=== PATIENT | male | born 1980 | race African-American/Black ===

== ENCOUNTER 2016-08-20 17:42 | Emergency (ER) | payer SELFPAY ==
[2016-08-20 18:06] VITALS: BP 160/98
--- NOTE | 2016-08-20 18:34 | PHYS DOC ---
Past Medical History Past Medical History: No Pertinent History Past Surgical History: Other Additional Past Surgical Histo: HERNIA REPAIR Alcohol Use: None Drug Use: None Adult General Chief Complaint Chief Complaint: SORE THROAT HPI HPI Patient is a 36 year old male presents emergency room with complaint of atraumatic sore throat, nonproductive cough and body aches that began 4 days ago. Patient denies any known ill contacts with strep or mononucleosis. Patient denies antibiotic use, hospitalization or foreign travel within the past 90 days. Review of Systems Review of Systems Constitutional: Denies fever or chills [] Eyes: Denies change in visual acuity, redness, or eye pain [] HENT: Denies nasal congestion or sore throat [] Respiratory: Denies cough or shortness of breath [] Cardiovascular: No additional information not addressed in HPI [] GI: Denies abdominal pain, nausea, vomiting, bloody stools or diarrhea [] : Denies dysuria or hematuria [] Musculoskeletal: Denies back pain or joint pain [] Integument: Denies rash or skin lesions [] Neurologic: Denies headache, focal weakness or sensory changes [] Endocrine: Denies polyuria or polydipsia [] Current Medications Current Medications Current Medications Medications (Trade) Dose Ordered Sig/Fei Start Time Stop Time Status Last Admin Dose Admin Dexamethasone Sodium Phosphate (Decadron) 10 mg 1X ONCE 08/20/16 19:00 08/20/16 19:01 DC 08/20/16 18:59 10 MG Penicillin G Benzathine (Bicillin L-A) 1,200,000 unit 1X ONCE 08/20/16 19:00 08/20/16 19:01 DC 08/20/16 18:59 1,200,000 UNIT Allergies Allergies Allergies Coded Allergies Type Severity Reaction Last Updated Verified No Known Drug Allergies 01/04/16 No Physical Exam Physical Exam Constitutional: Well developed, well nourished, no acute distress, non-toxic appearance. HENT: Normocephalic, atraumatic, bilateral external ears normal, oropharynx moist, no oral exudates, nose normal. There is no trismus or hot potato speech. Posterior oropharynx is hyperemic with bilateral tonsillar swelling 3/4 without exudative plaques. There is no peritonsillar swelling or uvular deviation. Eyes: PERRLA, EOMI, conjunctiva normal, no discharge. [] Neck: Normal range of motion, no tenderness, supple, no stridor. [] Cardiovascular:Heart rate regular rhythm, no murmur [] Lungs & Thorax: Bilateral breath sounds clear to auscultation Abdomen: Bowel sounds normal, soft, no tenderness, no masses, no pulsatile masses. [] Skin: Warm, dry, no erythema, no rash. [] Back: No tenderness, no CVA tenderness. [] Extremities: No tenderness, no cyanosis, no clubbing, ROM intact, no edema. [] Neurologic: Alert and oriented X 3, normal motor function, normal sensory function, no focal deficits noted. [] Psychologic: Affect normal, judgement normal, mood normal. [] Current Patient Data Vital Signs Vital Signs Date Time Temp Pulse Resp B/P Pulse Ox O2 Delivery O2 Flow Rate FiO2 08/20/16 18:06 99.3 101 22 96 Room Air 99.3 EKG EKG [] Radiology/Procedures Radiology/Procedures [] Course & Med Decision Making Course & Med Decision Making Pertinent Labs and Imaging studies reviewed. (See chart for details) [] Dragon Disclaimer Dragon Disclaimer This electronic medical record was generated, in whole or in part, using a voice recognition dictation system. Departure Departure Impression: Primary Impression: Strep throat Disposition: HOME, SELF-CARE Condition: GOOD Referrals: NO PCP (PCP) Patient Instructions: Strep Throat, [id number] Additional Instructions: 1. You tested positive for strep today. 2. You received an antibiotic here in the emergency Department called Bicillin LA as well as a steroid called Decadron. 3. Take the medication as prescribed. 4. Use the pamphlet provided for assistance in finding a primary care doctor to address your medical concerns. Be sure to call Monday to schedule follow-up appointment. Scripts Hydrocodone Bit/Acetaminophen (Hydrocodone-Apap 7.5-325/15 Soln )15 Ml [id number] Ml PO PRN Q6HRS PRN PAIN #120 ML Ref 0 Prov:POONAM ROQUE 08/20/16 POONAM ROQUE Aug 20, 2016 18:34
[2016-08-20] MEDS ORDERED: HYDR15SO4 PO (18:48)
[2016-08-20] MEDS ORDERED: PENICILLIN G BENZATHINE LA 1,200,000 UNIT/2 ML DISP.SYRIN. IM ONE (19:00)
[2016-08-20] MEDS ORDERED: DEXAMETHASONE SOD PHOS 20 MG/5 ML VIAL. PO ONE (19:00)
[2016-08-21 07:31] LABS: NEGATIVE OBC STREP NEG; POSITIVE OBC STREP POS
== END 2016-08-20 19:16 | disposition home or self-care (01) ==
LOC: ER 17:42
DX: J02.0 Streptococcal pharyngitis (principal)
CPT/HCPCS: 87880; 96372; 99283; J0561; J1100

== ENCOUNTER 2019-07-25 10:47 | Emergency (ER) | payer SELFPAY ==
[~2019-07-25] VITALS: Ht 182.9 cm; Wt 127.0 kg
[~2019-07-25 10:47] MED LIST: HYDR15SO6 PO
[2019-07-25 11:03] VITALS: BP 163/93
[2019-07-25 12:02] LABS: INFLUENZA A PATIENT NEGATIVE (NEGATIVE); INFLUENZA B PATIENT NEGATIVE (NEGATIVE)
[2019-07-25] MEDS ORDERED: ALBU2.5V8 IH (12:23)
[2019-07-25] MEDS ORDERED: PRED50TA PO (12:23)
[2019-07-25] MEDS ORDERED: BENZ100C PO (12:23)
--- NOTE | 2019-07-25 12:23 | PHYS DOC ---
Past Medical History Past Medical History: No Pertinent History Past Surgical History: Other Additional Past Surgical Histo: HERNIA REPAIR Alcohol Use: None Drug Use: None Adult General Chief Complaint Chief Complaint: COUGH HPI HPI Patient is a 39 year old male who presents to the ED today with complaints of cough, sore throat and nasal congestion for "a while". Patient is in the ED with 2 other family members with the same complaint. Denies any fever. He is a smoker. Review of Systems Review of Systems Constitutional: Denies fever or chills [] Eyes: Denies change in visual acuity, redness, or eye pain [] HENT: Reports nasal congestion and sore throat Respiratory: Denies cough or shortness of breath [] Cardiovascular: No additional information not addressed in HPI [] GI: Denies abdominal pain, nausea, vomiting, bloody stools or diarrhea [] : Denies dysuria or hematuria [] Musculoskeletal: Denies back pain or joint pain [] Integument: Denies rash or skin lesions [] Neurologic: Denies headache, focal weakness or sensory changes [] Endocrine: Denies polyuria or polydipsia [] All other systems were reviewed and found to be within normal limits, except as documented in this note. Allergies Allergies Allergies Coded Allergies Type Severity Reaction Last Updated Verified No Known Drug Allergies 01/04/16 No Physical Exam Physical Exam Constitutional: Well developed, well nourished, no acute distress, non-toxic appearance. [] HENT: Normocephalic, atraumatic, bilateral external ears normal, oropharynx moist, no oral exudates, nose normal. [] Eyes: PERRLA, EOMI, conjunctiva normal, no discharge. [] Neck: Normal range of motion, no tenderness, supple, no stridor. [] Cardiovascular:Heart rate regular rhythm, no murmur [] Lungs & Thorax: Bilateral breath sounds clear to auscultation [] Abdomen: Bowel sounds normal, soft, no tenderness, no masses, no pulsatile masses. [] Skin: Warm, dry, no erythema, no rash. [] Back: No tenderness, no CVA tenderness. [] Extremities: No tenderness, no cyanosis, no clubbing, ROM intact, no edema. [] Neurologic: Alert and oriented X 3, normal motor function, normal sensory func tion, no focal deficits noted. [] Psychologic: Affect normal, judgement normal, mood normal. [] Current Patient Data Vital Signs Vital Signs Date Time Temp Pulse Resp B/P (MAP) Pulse Ox O2 Delivery O2 Flow Rate FiO2 07/25/19 11:03 98.3 96 16 163/93 (116) 97 Room Air 98.3 Lab Values Laboratory Tests Test 07/25/19 11:18 Influenza Type A Antigen Negative (NEGATIVE) Influenza Type B Antigen Negative (NEGATIVE) EKG EKG [] Radiology/Procedures Radiology/Procedures [] Course & Med Decision Making Course & Med Decision Making Pertinent Labs and Imaging studies reviewed. (See chart for details) This is a 39-year-old male patient presented to the ED today with sore throat cough and nasal congestion, patient has no fever in the Ed with several family members with the same complain. Lungs are clear. Negative influenza A or B. Encouraged to consider smoking cessation. D/c with albuterol inhaler, prednisone and tessalone perles. Dragon Disclaimer Dragon Disclaimer This electronic medical record was generated, in whole or in part, using a voice recognition dictation system. Departure Departure Impression: Primary Impression: Acute pharyngitis Additional Impressions: Bronchitis Smoking addiction URI (upper respiratory infection) Disposition: 01 HOME, SELF-CARE Condition: STABLE Referrals: NO PCP (PCP) follow up with your doctor in 1-2 weeks Patient Instructions: Acute Bronchitis, Smoking Cessation Additional Instructions: You were evaluated in the emergency room with cough and nasal congestion. Please use the prescribed medicine as well as [id number] remedies to manage his symptoms. Maintain good hand hygiene. Follow-up with your doctor in 1-2 weeks. Scripts Benzonatate (TESSALON PERLE) 100 Mg Capsule 1 CAP PO TID, #30 CAP Prov: MUTUNGACAROL CODE ENFORCEMENT SUPERVISOR 07/25/19 Prednisone (PREDNISONE) 50 Mg Tablet 1 TAB PO DAILY, #5 TAB Prov: MUTUNGA,CAROL CODE ENFORCEMENT SUPERVISOR 07/25/19 Albuterol Sulfate (Proair Hfa) 8.5 Gm Hfa.aer.ad 2 PUFF IH PRN Q4-6HRS PRN for wheezing for 21 Days, #1 INHALER 0 Refills Prov: MUTUNGA,CAROL CODE ENFORCEMENT SUPERVISOR 07/25/19 Problem Qualifiers Primary Impression: Acute pharyngitis Pharyngitis/tonsillitis etiology: unspecified etiology Qualified Codes: J02.9 - Acute pharyngitis, unspecified Additional Impressions: URI (upper respiratory infection) URI type: unspecified URI Qualified Codes: J06.9 - Acute upper respiratory infection, unspecified CAROL SHEN CODE ENFORCEMENT SUPERVISOR Jul 25, 2019 12:23
== END 2019-07-25 12:41 | disposition home or self-care (01) ==
LOC: ER 10:47
DX: J02.9 Acute pharyngitis, unspecified (principal); J40 Bronchitis, not specified as acute or chronic; J06.9 Acute upper respiratory infection, unspecified; F17.200 Nicotine dependence, unspecified, uncomplicated; Z98.890 Other specified postprocedural states
CPT/HCPCS: 87804; 99284

== ENCOUNTER 2020-11-12 12:50 | Emergency (ER) | payer SELFPAY ==
[~2020-11-12] VITALS: Ht 182.9 cm; Wt 135.3 kg
[~2020-11-12 12:50] MED LIST changes: +ALBU2.5V8 IH; +BENZ100C PO; +PRED50TA PO
[2020-11-12] MEDS ORDERED: IV NORMAL SALINE 1000ML BAG 1,000 ML IV ONE (14:00)
--- NOTE | 2020-11-12 14:00 | ED.ADGEN ---
Past Medical History Past Medical History: No Pertinent History Past Surgical History: Other Additional Past Surgical Histo: HERNIA REPAIR Smoking Status: Former Smoker Alcohol Use: None Drug Use: None General Adult EDM: Chief Complaint: FLU SYMPTOM HPI: HPI: Patient is a 40 year old male coming in for cold and flulike symptoms. Patient states symptoms started today he has had congestion difficulty breathing through his nose, body aches, fatigue. Denies any cough. States his congestion is white and thick. Denies any fevers but has had chills and sweats. Patient st ates he feels like his difficult time breathing has been able to fill his lungs open for still his mouth. No sick contacts at home but, lives with a significant other who is . Denies any previous Covid infection, no known sick contacts, as patient states it feels like when he had the flu. Did not get his flu vaccine this season. States he had similar symptoms for a day that was about 10 days ago and has been fine since. Review of Systems: Review of Systems: All other systems within normal limits except for as noted in the HPI Current Medications: Current Medications Medications (Trade) Dose Ordered Sig/Fei Start Time Stop Time Status Last Admin Dose Admin Sodium Chloride 1,000 ml @ 1,000 mls/hr 1X ONCE 11/12/20 14:00 11/12/20 14:59 DC 11/12/20 14:25 1,000 MLS/HR Allergies: Allergies: Allergies Coded Allergies Type Severity Reaction Last Updated Verified No Known Drug Allergies 11/12/20 No Physical Exam: PE: Constitutional: Well developed, well nourished, no acute distress, non-toxic appearance. [] HENT: Normocephalic, atraumatic, bilateral external ears normal, nose normal. [] Eyes: PERRLA, conjunctiva normal, no discharge. [] Neck: No rigidity, supple, no stridor. [] Cardiovascular: Tachycardic and regular rhythm, brisk cap refill [] Lungs & Thorax: Non labored symmetric respirations, no tachypnea or respiratory distress [] Abdomen: Soft, nondistended. Skin: Warm, dry, no erythema, no rash. [] Back: Unremarkable Extremities: No deformities, range of motion grossly intact, no lower extremity edema [] Neurologic: Alert and oriented X 3, no focal deficits noted. [] Psychologic: Affect normal, judgement normal, mood normal. [] Current Patient Data: Labs: Laboratory Tests Test 11/12/20 14:00 11/12/20 14:24 11/12/20 15:40 Influenza Type A Antigen Negative (NEGATIVE) Influenza Type B Antigen Negative (NEGATIVE) White Blood Count 4.9 x10^3/uL (4.0-11.0) Red Blood Count 4.83 x10^6/uL (4.30-5.70) Hemoglobin 14.9 g/dL (13.0-17.5) Hematocrit 43.6 % (39.0-53.0) Mean Corpuscular Volume 90 fL (79-100) Mean Corpuscular Hemoglobin 31 pg (25-35) Mean Corpuscular Hemoglobin Concent 34 g/dL (31-37) Red Cell Distribution Width 13.9 % (11.5-14.5) Platelet Count 77 x10^3/uL (140-400) L Neutrophils (%) (Auto) 80 % (31-73) H Lymphocytes (%) (Auto) 13 % (24-48) L Monocytes (%) (Auto) 5 % (0-9) Eosinophils (%) (Auto) 1 % (0-3) Basophils (%) (Auto) 2 % (0-3) Neutrophils # (Auto) 3.9 x10^3/uL (1.8-7.7) Lymphocytes # (Auto) 0.6 x10^3/uL (1.0-4.8) L Monocytes # (Auto) 0.2 x10^3/uL (0.0-1.1) Eosinophils # (Auto) 0.0 x10^3/uL (0.0-0.7) Basophils # (Auto) 0.1 x10^3/uL (0.0-0.2) Platelet Estimate Decreased (ADEQUATE) Sodium Level 136 mmol/L (136-145) Potassium Level 3.9 mmol/L (3.5-5.1) Chloride Level 103 mmol/L (98-107) Carbon Dioxide Level 24 mmol/L (21-32) Anion Gap 9 (6-14) Blood Urea Nitrogen 12 mg/dL (8-26) Creatinine 1.3 mg/dL (0.7-1.3) Estimated GFR (Cockcroft-Gault) 74.4 BUN/Creatinine Ratio 9 (6-20) Glucose Level 103 mg/dL (70-99) H Calcium Level 8.4 mg/dL (8.5-10.1) L Total Bilirubin 0.6 mg/dL (0.2-1.0) Aspartate Amino Transferase (AST) 12 U/L (15-37) L Alanine Aminotransferase (ALT) 22 U/L (16-63) Alkaline Phosphatase 78 U/L (46-116) Troponin I Quantitative < 0.017 ng/mL (0.000-0.055) Total Protein 7.1 g/dL (6.4-8.2) Albumin 3.6 g/dL (3.4-5.0) Albumin/Globulin Ratio 1.0 (1.0-1.7) Urine Collection Type Void Urine Color Yellow Urine Clarity Clear Urine pH 5.5 (<5.0-8.0) Urine Specific [place] 1.020 (1.000-1.030) Urine Protein Negative mg/dL (NEG-TRACE) Urine Glucose (UA) Negative mg/dL (NEG) Urine Ketones (Stick) Trace mg/dL (NEG) Urine Blood Negative (NEG) Urine Nitrite Negative (NEG) Urine Bilirubin Negative (NEG) Urine Urobilinogen Dipstick 1.0 mg/dL (0.2 mg/dL) Urine Leukocyte Esterase Negative (NEG) Urine RBC 0 /HPF (0-2) Urine WBC 0 /HPF (0-4) Urine Squamous Epithelial Cells Few /LPF Urine Bacteria 0 /HPF (0-FEW) Urine Mucus Marked /LPF Laboratory Tests 11/12/20 14:24 Laboratory Tests 11/12/20 14:24 Vital Signs: Vital Signs Date Time Temp Pulse Resp B/P (MAP) Pulse Ox O2 Delivery O2 Flow Rate FiO2 11/12/20 13:41 98.5 101 18 171/110 (130) 96 Room Air 98.5 EKG: EKG: [] Heart Score: C/O Chest Pain: No Risk Factors: Risk Factors: DM, Current or recent (<one month) smoker, HTN, HLP, family history of CAD, obesity. Risk Scores: Score 0 - 3: 2.5% MACE over next 6 weeks - Discharge Home Score 4 - 6: 20.3% MACE over next 6 weeks - Admit for Clinical Observation Score 7 - 10: 72.7% MACE over next 6 weeks - Early Invasive Strategies Radiology/Procedures: Radiology/Procedures: Single view chest dated 11/12/2020: No comparison available. Clinical Indication: Cough. Findings: Single upright portable exam of the chest was performed. Heart size and mediastinal contours are within normal limits given technique. The lungs are clear without evidence of focal consolidation. Vascular interstitium is within normal limits. Impression:: Negative portable chest. [] Course & Med Decision Making: Course & Med Decision Making Pertinent Labs and Imaging studies reviewed. (See chart for details) [] Dragon Disclaimer: Dragon Disclaimer: This electronic medical record was generated, in whole or in part, using a voice recognition dictation system. Departure Departure Impression: Primary Impression: URI (upper respiratory infection) Disposition: 01 DC HOME SELF CARE/HOMELESS Condition: STABLE Referrals: NO PCP (PCP) Additional Instructions: You have been tested for or diagnosed with COVID-19. It is an infection caused by a new type of coronavirus. COVID-19 will cause cold-like or mild flu symptoms in most. It can cause more severe symptoms like problems breathing in some. There is no treatment for COVID-19. The body will clear the infection over time. Self-care will help to ease discomfort. Steps to Take: Self-Care Rest as needed. Healthy habits may help you feel better. Steps include: Choose healthy foods including fruits and vegetables. Drink water throughout the day. Get plenty of sleep each night. If you smoke, try to quit. It may ease breathing. Avoid alcohol. Keep Others Healthy The virus can spread to others. Droplets are released every time you sneeze or cough. The droplets can get into the mouth, nose, or eyes of people near you and lead to infection. To lower the chances of spreading COVID-19 to others: Stay at home until your doctor has said it is safe to leave. If you tested positive this will mean staying isolated until both of the following are true: At least 7 days have passed since the start of illness. You are free of fever for at least 72 hours without the use of medicine. During this time: - Avoid public areas, events, or transportation. Do not return to work or school until your doctor has said it is safe to do so. - Call ahead if you need to go to a medical center. Let them know you may have COVID-19. It will help them guide you where to go. They may also ask you to wear a facemask when you come to the office. - If you call for emergency medical services, let them know you may have COVID- 19. While at home: - Try to avoid close contact with others. Stay about 6 feet away. - If possible, spend most of your time in a separate room from others. - Use a face mask if you will be in close contact with others such as sharing a room or vehicle. - Have someone wipe down common surfaces in the home. Use household r developer every day on areas like doorknobs, counters, or sinks. - Cough or sneeze into a tissue. Throw the tissue away right after use. If a tissue is not available, cough or sneeze into your elbow. - Wash your hands often. Wash them after sneezing or coughing. Use soap and water and wash for at least 20 seconds. Alcohol based hand vacuum cleaner mechanic can be used if soap and water is not available. - Do not prepare food for others. Avoid sharing personal items like forks, spoons, or toothbrushes. - Avoid close contact with pets while you are sick. There is no evidence of the virus passing to pets. This is a safety step until more is known about this virus. Isolation can be frustrating. Social interaction can help. Keep in touch with friends and family through phone and tech options. You can still interact with others in your home, just keep a safe distance of about 6 feet. Follow-up: Your doctors office will check in with you to see if there are any changes in your health. You may be asked to keep track of symptoms to share with them. They will also let you know when you are clear to be in public again. Problems to Look Out For: Contact your doctor if your recovery is not going as you expect. Get emergency care if you have problems such as: - Trouble breathing - Nonstop chest pain or pressure - Changes in awareness, confusion, or problems waking - Lips or face have bluish color - Worsening of symptoms If you think you have an emergency, call for emergency medical services right away. As taken from [facility] Scripts Prednisone (PREDNISONE) 50 Mg Tablet 1 TAB PO DAILY for steroid for 5 Days, #5 TAB Prov: ARAMIS JAMES MD 11/12/20 Oxymetazoline Hcl (AFRIN) 30 Ml [place] 30 ML NS BID for Congestion for 3 Days, #1 BOT Prov: ARAMIS JAMES MD 11/12/20 ARAMIS JAMES MD Nov 12, 2020 14:00
--- NOTE | 2020-11-12 14:16 | RAD ---
Single view chest dated 11/12/2020: No comparison available. Clinical Indication: Cough. Findings: Single upright portable exam of the chest was performed. Heart size and mediastinal contours are with in normal limits given technique. The lungs are clear without evidence of focal consolidation. Vascul ar interstitium is within normal limits. Impression:: Negative portable chest. Electronically signed by: Armaan Ramirez MD (11/12/2020 2:14 PM) [id number]
[2020-11-12 14:33] LABS: BASO # 0.1 x10^3/uL (0.0-0.2); BASO % 2 % (0-3); EOS % 1 % (0-3); HEMATOCRIT 43.6 % (39.0-53.0); HEMOGLOBIN 14.9 g/dL (13.0-17.5); LYMPH # 0.6 x10^3/uL (1.0-4.8); LYMPH % 13 % (24-48); MEAN CORPUSCULAR HEMOGLOBIN 31 pg (25-35); MEAN CORPUSCULAR HGB CONC 34 g/dL (31-37); MEAN CORPUSCULAR VOLUME 90 fL (79-100); MONO # 0.2 x10^3/uL (0.0-1.1); MONO % 5 % (0-9); NEUT # 3.9 x10^3/uL (1.8-7.7); NEUT % 80 % (31-73); PLATELET COUNT 77 x10^3/uL (140-400); RED BLOOD COUNT 4.83 x10^6/uL (4.30-5.70); RED CELL DISTRIBUTION WIDTH 13.9 % (11.5-14.5); WHITE BLOOD COUNT 4.9 x10^3/uL (4.0-11.0)
[2020-11-12 14:34] LABS: INFLUENZA A PATIENT NEGATIVE (NEGATIVE); INFLUENZA B PATIENT NEGATIVE (NEGATIVE)
[2020-11-12 14:45] LABS: CALCIUM 8.4 mg/dL (8.5-10.1); CREATININE 1.3 mg/dL (0.7-1.3); GFR 74.4; POTASSIUM 3.9 mmol/L (3.5-5.1)
[2020-11-12 14:51] LABS: ALBUMIN 3.6 g/dL (3.4-5.0); TOTAL BILIRUBIN 0.6 mg/dL (0.2-1.0); TOTAL PROTEIN 7.1 g/dL (6.4-8.2)
[2020-11-12 14:53] LABS: PLT ESTIMATE DECREASED (ADEQUATE)
[2020-11-12 15:54] LABS: BILIRUBIN,URINE NEGATIVE (NEG); CLARITY,URINE CLEAR; COLOR,URINE YELLOW; NITRITE,URINE NEGATIVE (NEG); PH,URINE 5.5 (<5.0-8.0); PROTEIN,URINE NEGATIVE (NEG-TRACE)
[2020-11-12 16:02] LABS: BACTERIA,URINE 0 /HPF (0-FEW); RBC,URINE 0 /HPF (0-2); WBC,URINE 0 /HPF (0-4)
[2020-11-12] MEDS ORDERED: PRED50TA PO (16:11)
[2020-11-12] MEDS ORDERED: OXYM30SP25 NS (16:11)
[2020-11-12 16:23] VITALS: BP 162/78
--- NOTE | 2020-11-13 12:41 | NUR ---
IP: Attempted to contact pt concerning COVID results. No answer, left a voicemail to return the call.
== END 2020-11-12 16:45 | disposition home or self-care (01) ==
LOC: ER 12:50
DX: J06.9 Acute upper respiratory infection, unspecified (principal); Z20.822 Contact with and (suspected) exposure to COVID-19; R09.81 Nasal congestion; R53.83 Other fatigue; Z87.891 Personal history of nicotine dependence; Z98.890 Other specified postprocedural states
CPT/HCPCS: 36415; 71045; 80053; 81001; 84484; 85025; 87804; 96360; 96361; 99285; J7030; U0003

== ENCOUNTER 2021-04-04 04:46 | Inpatient (IN) | payer SELFPAY ==
[~2021-04-04] VITALS: Ht 182.9 cm; Wt 137.7 kg
[~2021-04-04 04:46] MED LIST changes: +OXYM30SP25 NS
[2021-04-04 05:19] VITALS: BP 145/86
[2021-04-04] MEDS ORDERED: ONDANSETRON PF 4 MG/2 ML VIAL. IVP PRN ×2 (05:45→13:15)
[2021-04-04] MEDS: PIPERACILLIN/TAZOBACTAM 3.375 GM in IV NORMAL SALINE 50ML 50 ML IV SCH ×3 (06:00→17:45)
[2021-04-04] MEDS: IV NORMAL SALINE 1000ML BAG 1,000 ML IV SCH ×2 (06:28→15:45)
[2021-04-04 07:00] VITALS: BP 142/90
[2021-04-04] MEDS: MORPHINE SULFATE 4 MG/ML INJ. IV PRN ×3 (09:18→22:14)
[2021-04-04] MEDS ORDERED: BUPIVACAINE-EPI 0.5%-1:200000 MPF 30 ML VIAL. ONE (10:18)
--- NOTE | 2021-04-04 11:08 | HP ---
ADMIT DATE: 04/04/2021 HISTORY OF PRESENT ILLNESS: The patient is a 41-year-old -[place] male patient who came to the Emergency Room complaining of right lower quadrant abdominal pain that started earlier in the day. He rates his pain as 8/10, sharp in nature with mild nausea, but no vomiting. He states he had anything like this before. Denies any recent trauma, travel, fever, chest pain, shortness of breath. He was investigated in the Emergency Room and has had lab work as well as imaging studies. His CT scan of the abdomen and pelvis showed that the patient has uncomplicated acute appendicitis and hepatic steatosis. He was transferred to [facility] to consult the surgical team for definitive surgical treatment. PAST MEDICAL HISTORY: Significant for hypertension; however, the patient is not taking any medication for that. PAST SURGICAL HISTORY: Significant for left inguinal hernia repair. ALLERGIES: No known drug allergies. MEDICATIONS: He is currently on no medication, although he is supposed to be on antihypertensive medication. FAMILY HISTORY: Noncontributory. SOCIAL HISTORY: He is single, smokes a pack a day, drinks alcohol occasionally. He also smokes marijuana and works in construction and remodeling. PHYSICAL EXAMINATION: GENERAL: When I examined him, he looked well and was clearly in no apparent respiratory distress. No pallor, jaundice, cyanosis, or thyromegaly. No jugular venous distention. No limb edema. VITAL SIGNS: His heart rate was 83, blood pressure was 156/85, temperature 98.2, respiratory rate was 22 and oxygen saturation was 98%. HEAD, EYES, EARS, NOSE, AND THROAT: Showed normocephalic, atraumatic. NECK: Supple. HEART: Showed normal first and second heart sounds. No gallop or murmur. CHEST: Clear to auscultation. No crepitation or rhonchi. ABDOMEN: Distended. Tenderness mostly in the right lower quadrant. There is no guarding or rigidity. No organomegaly. All hernial orifice intact. Bowel sounds normal. NEUROLOGICAL: He was grossly intact. LABORATORY DATA: His white cell count was 8400, hemoglobin 14.7, hematocrit 43, MCV 93, and platelet count of 70,000. Serum sodium was 142, potassium 4.4, chloride 106, bicarbonate 28, anion gap of 8, BUN 14, creatinine 1.5. Estimated GFR was 62 mL per minute. His glucose was 132, calcium was 8.3. Total bilirubin, AST, ALT, and alkaline phosphatase were normal. Total protein 6.6. Albumin was 3.8. Serum lipase was 177. His coronavirus rapid testing was negative. IMAGING STUDIES: CT scan of the abdomen and pelvis showed that the liver showed decreased attenuation. Gallbladder, biliary tree, pancreas, spleen, and adrenal glands are normal. Kidneys, ureters, and bladder are normal in size and enhancement. No hydronephrosis. Ureters and bladder are normal. Reproductive organs, prostate gland is normal. Stomach, small bowel and colon are normal. The appendix is mildly dilated measuring 8 mm with wall thickening and periappendiceal inflammation. No evidence of perforation or abscess. ASSESSMENT AND PLAN: The patient was diagnosed with uncomplicated acute appendicitis. He was transferred to [facility] where he was kept n.p.o., started on IV fluid, IV pain medication, antiemetic and antibiotic. We have consulted the surgical team for further evaluation and treatment. His platelets are 70,000, which is not concerning for surgery, but obviously, I will consult the pillowcase turner. Apparently, his platelet count were low on 03/28/2021. ANDREIA DR: Russel TID: [id number]
--- NOTE | 2021-04-04 11:12 | PDOC2 ---
CONSULT Date of Consult Date of Consult DATE: 04/04/21 TIME: 11:06 Reason for Consult Reason for Consult: appendicitis Referring Physician Referring Physician: Dr. Negrete Identification/Chief Complaint Chief Complaint RLQ abd pain Source Source: Chart review, Patient History of Present Illness Reason for Visit: 41 yo M with c/o RLQ abd pain, beginning 04/02. No previous episodes. Associated anorexia for two days, but some hunger today. No N/V. Stool 04/02 AM, but constipation since. Recent covid beginning of march and tooth surgery on 04/02. Seen in preop and appears comfortable. Past Medical History Cardiovascular: HTN Past Surgical History Past Surgical History: Hernia Repair (LIH at age 9 at [place]) Family History Family History: No Significant Social History ALCOHOL: rare Current Medications Current Medications Current Medications Sodium Chloride 1,000 ml @ 100 mls/hr Q10H IV Last administered on 04/04/21at 06:28; Start 04/04/21 at 05:45 Piperacillin Sod/ Tazobactam Sod 3.375 gm/Sodium Chloride 50 ml @ 100 mls/hr Q6HRS IV ; Start 04/04/21 at 06:00 Morphine Sulfate (Morphine Sulfate) 4 mg PRN Q4HRS PRN IV SEVERE PAIN 7-10 Last administered on 04/04/21at 09:18; Start 04/04/21 at 05:45 Ondansetron HCl (Zofran) 4 mg PRN Q4HRS PRN IVP NAUSEA/VOMITING 1ST CHOICE; Start 04/04/21 at 05:45 Bupivacaine HCl/ Epinephrine Bitart (Sensorcain-Epi 0.5%-1:813241 Mpf) 30 ml STK-MED ONCE .ROUTE ; Start 04/04/21 at 10:18; Stop 04/04/21 at 10:18; Status DC Active Scripts Active Reported No Known Medications Prior To Admisstion (Info) Each 1 Each MC 1X Allergies Allergies: Coded Allergies: No Known Drug Allergies (Unverified , 11/12/20) ROS Gastrointestinal: Yes Abdominal Pain Physical Exam General: Alert, Oriented X3, Cooperative, No acute distress HEENT: Atraumatic Lungs: Normal air movement Abdomen: Soft, Other (mild TTP RLQ (received pain meds), morbid obesity) Extremities: No clubbing, No cyanosis Skin: No rashes, No breakdown Neuro: Normal speech, Sensation intact Psych/Mental Status: Mental status NL, Mood NL Vitals VITALS Vital Signs Date Time Temp Pulse Resp B/P (MAP) Pulse Ox O2 Delivery O2 Flow Rate FiO2 04/04/21 09:18 Room Air 04/04/21 07:00 97.8 74 16 142/90 (107) 93 97.8 04/04/21 04:50 2.0 Labs Labs WBC wnl at [facility] Images Images CT at [facility] with dilated appendix and periappendiceal inflammation Assessment/Plan Assessment/Plan Appendicitis IV abx started, TO OR for laparoscopic versus open appendectomy. R/R/B/A d/w pt and pt's family. Risks, including, but not limited to: bleeding, infection, damage to surrounding structures, risk of anesthesia, risk of open. Increased risk of complications secondary to recent covid infection, morbid obesity, uncontrolled HTN, smoking. They appear to understand, their questions are answered and they elect to proceed. Thanks for consult! SHEILA QUINONES MD Apr 04, 2021 11:12
[2021-04-04] MEDS ORDERED: PROPOFOL 10 MG/ML (20ML) VIAL. IV ONE (11:18)
[2021-04-04] MEDS ORDERED: ROCURONIUM 50 MG/5 ML VIAL. ONE (11:19)
[2021-04-04] MEDS ORDERED: DEXAMETHASONE SOD PHOS 4 MG/ML VIAL ONE (11:19)
[2021-04-04] MEDS ORDERED: ONDANSETRON PF 4 MG/2 ML VIAL. ONE (11:19)
[2021-04-04] MEDS ORDERED: IV RINGERS,LACTATED 1000ML 1,000 ML IV SCH (11:30)
[2021-04-04] MEDS ORDERED: PROCHLORPERAZINE 10 MG/2 ML VIAL. IVP PRN (11:30)
[2021-04-04] MEDS ORDERED: HYDROmorphone 2 MG/ML VIAL IVP PRN (11:30)
[2021-04-04] MEDS ORDERED: fentaNYL PF VIAL 100 MCG/2 ML VIAL IVP PRN ×2 (11:30)
[2021-04-04] MEDS ORDERED: fentaNYL PF VIAL 100 MCG/2 ML VIAL ONE (12:18)
[2021-04-04] MEDS ORDERED: NEOSTIGMINE METHYLSULFATE 5 MG/5 ML SYRINGE. ONE (12:22)
[2021-04-04] MEDS ORDERED: GLYCOPYRROLATE 1 MG/5 ML VIAL. ONE (12:22)
[2021-04-04] MEDS ORDERED: MORPHINE SULFATE 2 MG/ML INJ. ONE (12:33)
[2021-04-04] MEDS ORDERED: PROCHLORPERAZINE 10 MG/2 ML VIAL. ONE (12:33)
[2021-04-04] MEDS ORDERED: SEVOFLURANE 61 TO 120 MINUTES. IH ONE (12:47)
[2021-04-04] MEDS: MORPHINE SULFATE 2 MG/ML INJ. IVP PRN ×2 (13:05→13:20)
--- NOTE | 2021-04-04 13:11 | PDOC4 ---
OPERATIVE NOTE Date: Date: Apr 04, 2021 Pre-Op Diagnosis: Appendicitis Post-Op Diagnosis: same Procedure Performed: laparoscopic appendectomy Surgeon: Crescencio Quinones Anesthesia Type: GETA plus local Blood Loss: 50 Specimans Obtained: appendix Findings: morbid obesity, indurated appendix, no perforation Complications: none Operative Note: After obtaining informed consent, patient was taken to OR, induced under GETA and prepped in the usual fashion. 5 mm port placed umbilical, suprapubic, 12 port placed RUQ, all under laparoscopic guidance. Abdominal cavity was explored and normal except noted as above. Evidence of LIH repair, uncomplicated. Appendix was grasped. Defect created in mesoappendix. General load BEAN taken across base of appendix. Vascular loads, multiple, taken across mesoappendix. Appendix placed in bag, delivered and sent to pathology. Copious irrigation. No evidence of bleeding or other pathology. Staple lines intact. Ports removed without bleeding. Fascia repaired with 0 vicryl. Skin repaired with 4 0 monocryl. Dressing placed. Patient was taken to PACU in stable condition. All counts correct. Wound class is 3. SHEILA QUINONES MD Apr 04, 2021 13:11
[2021-04-04] MEDS ORDERED: NALOXONE 0.4 MG/ML VIAL. IV PRN (13:15)
[2021-04-04] MEDS: IV RINGERS,LACTATED 1000ML 1,000 ML IV SCH ×2 (13:15→23:15)
[2021-04-04] MEDS ORDERED: IV NORMAL SALINE 1000ML BAG 1,000 ML IV SCH (13:15)
[2021-04-04] MEDS ORDERED: 0.9 % SODIUM CHLORIDE 10 ML DISP.SYRIN. IV PRN (13:15)
[2021-04-04 15:00] VITALS: BP 152/75
[2021-04-04] MEDS: HYDROcodone/APAP 5/325MG 1 TAB TABLET PO PRN (17:55)
[2021-04-04 19:00] VITALS: BP 131/87
[2021-04-04] MEDS: DOCUSATE SODIUM 100 MG CAPSULE. PO SCH (20:26)
[2021-04-04 23:00] VITALS: BP 136/91
[2021-04-05] MEDS: PIPERACILLIN/TAZOBACTAM 3.375 GM in IV NORMAL SALINE 50ML 50 ML IV SCH ×3 (00:48→12:24)
[2021-04-05] MEDS: MORPHINE SULFATE 4 MG/ML INJ. IV PRN ×3 (00:49→12:24)
[2021-04-05] MEDS: IV NORMAL SALINE 1000ML BAG 1,000 ML IV SCH ×2 (01:45→11:45)
[2021-04-05 03:53] VITALS: BP 139/95
[2021-04-05 07:00] VITALS: BP 145/95
[2021-04-05 07:07] LABS: ALBUMIN 3.6 g/dL (3.4-5.0); ALBUMIN/GLOBULIN RATIO 1.2 (1.0-1.7); CALCIUM 8.7 mg/dL (8.5-10.1); CREATININE 1.4 mg/dL (0.7-1.3); GFR 67.9; POTASSIUM 4.6 mmol/L (3.5-5.1); TOTAL BILIRUBIN 0.4 mg/dL (0.2-1.0); TOTAL PROTEIN 6.7 g/dL (6.4-8.2)
[2021-04-05] MEDS: HYDROcodone/APAP 5/325MG 1 TAB TABLET PO PRN (08:53)
[2021-04-05] MEDS: DOCUSATE SODIUM 100 MG CAPSULE. PO SCH (08:53)
[2021-04-05] MEDS ORDERED: SENNOSIDES/DOCUSATE 8.6/50MG TABLET. PO SCH (09:00)
[2021-04-05] MEDS: IV RINGERS,LACTATED 1000ML 1,000 ML IV SCH (09:15)
--- NOTE | 2021-04-05 10:13 | NUR ---
SW following. Discussed with RN, pt from home, room air, cardiac diet. Pt had surgery on 04/04/21. Med Assist following for self pay status. SW will continue to follow.
[2021-04-05] MEDS ORDERED: HYDR-2761 PO (11:14)
[2021-04-05] MEDS ORDERED: POLY17PO29 PO (11:14)
[2021-04-05] MEDS ORDERED: IBUP-1007 PO (11:14)
[2021-04-05] MEDS ORDERED: SENN-189 PO (11:14)
--- NOTE | 2021-04-05 11:18 | PDOC ---
SURGICAL PROGRESS NOTE DATE: 04/05/21 TIME: 11:17 Subjective sore but doing well tolerating diet Vital Signs Vital Signs Date Time Temp Pulse Resp B/P (MAP) Pulse Ox O2 Delivery O2 Flow Rate FiO2 04/05/21 08:53 93 3.0 04/05/21 07:00 98.2 89 20 145/95 (112) Room Air 98.2 I&O Intake and Output 04/05/21 07:00 Intake Total 1760 ml Output Total 2510 ml Balance -750 ml Intake Oral 960 ml IV Total 800 ml Output Urine Total 2500 ml Estimated Blood Loss 10 ml # Voids 1 General: Alert, Oriented X3, Cooperative Abdomen: Soft, Other (lap sites intact) Labs Laboratory Tests Test 04/05/21 05:45 04/05/21 09:55 Sodium Level 139 mmol/L (136-145) Potassium Level 4.6 mmol/L (3.5-5.1) Chloride Level 104 mmol/L (98-107) Carbon Dioxide Level 27 mmol/L (21-32) Anion Gap 8 (6-14) Blood Urea Nitrogen 10 mg/dL (8-26) Creatinine 1.4 mg/dL (0.7-1.3) Estimated GFR (Cockcroft-Gault) 67.9 BUN/Creatinine Ratio 7 (6-20) Glucose Level 103 mg/dL (70-99) Calcium Level 8.7 mg/dL (8.5-10.1) Total Bilirubin 0.4 mg/dL (0.2-1.0) Aspartate Amino Transf (AST/SGOT) 14 U/L (15-37) Alanine Aminotransferase (ALT/SGPT) 31 U/L (16-63) Alkaline Phosphatase 68 U/L (46-116) Total Protein 6.7 g/dL (6.4-8.2) Albumin 3.6 g/dL (3.4-5.0) Albumin/Globulin Ratio 1.2 (1.0-1.7) White Blood Count 8.0 x10^3/uL (4.0-11.0) Red Blood Count 4.36 x10^6/uL (4.30-5.70) Hemoglobin 13.7 g/dL (13.0-17.5) Hematocrit 40.6 % (39.0-53.0) Mean Corpuscular Volume 93 fL (79-100) Mean Corpuscular Hemoglobin 32 pg (25-35) Mean Corpuscular Hemoglobin Concent 34 g/dL (31-37) Red Cell Distribution Width 13.4 % (11.5-14.5) Platelet Count 66 x10^3/uL (140-400) Laboratory Tests Test 04/05/21 05:45 04/05/21 09:55 Sodium Level 139 mmol/L (136-145) Potassium Level 4.6 mmol/L (3.5-5.1) Chloride Level 104 mmol/L (98-107) Carbon Dioxide Level 27 mmol/L (21-32) Anion Gap 8 (6-14) Blood Urea Nitrogen 10 mg/dL (8-26) Creatinine 1.4 mg/dL (0.7-1.3) Estimated GFR (Cockcroft-Gault) 67.9 BUN/Creatinine Ratio 7 (6-20) Glucose Level 103 mg/dL (70-99) Calcium Level 8.7 mg/dL (8.5-10.1) Total Bilirubin 0.4 mg/dL (0.2-1.0) Aspartate Amino Transf (AST/SGOT) 14 U/L (15-37) Alanine Aminotransferase (ALT/SGPT) 31 U/L (16-63) Alkaline Phosphatase 68 U/L (46-116) Total Protein 6.7 g/dL (6.4-8.2) Albumin 3.6 g/dL (3.4-5.0) Albumin/Globulin Ratio 1.2 (1.0-1.7) White Blood Count 8.0 x10^3/uL (4.0-11.0) Red Blood Count 4.36 x10^6/uL (4.30-5.70) Hemoglobin 13.7 g/dL (13.0-17.5) Hematocrit 40.6 % (39.0-53.0) Mean Corpuscular Volume 93 fL (79-100) Mean Corpuscular Hemoglobin 32 pg (25-35) Mean Corpuscular Hemoglobin Concent 34 g/dL (31-37) Red Cell Distribution Width 13.4 % (11.5-14.5) Platelet Count 66 x10^3/uL (140-400) Assessment/Plan s/p appy ok to in home Justicifation of Admission Dx: Justifications for Admission: Justification of Admission Dx: Yes Comments: appendicitis PAULO LUZ BRICK YARD HAND Apr 05, 2021 11:18
[2021-04-05 12:11] LABS: BASO % 0 % (0-3); EOS % 0 % (0-3); HEMATOCRIT 40.1 % (39.0-53.0); HEMOGLOBIN 13.8 g/dL (13.0-17.5); LYMPH # 2.4 x10^3/uL (1.0-4.8); LYMPH % 30 % (24-48); MEAN CORPUSCULAR HEMOGLOBIN 32 pg (25-35); MEAN CORPUSCULAR HGB CONC 34 g/dL (31-37); MEAN CORPUSCULAR VOLUME 92 fL (79-100); MONO # 0.3 x10^3/uL (0.0-1.1); MONO % 4 % (0-9); NEUT # 5.3 x10^3/uL (1.8-7.7); NEUT % 66 % (31-73); PLATELET COUNT 64 x10^3/uL (140-400); RED BLOOD COUNT 4.35 x10^6/uL (4.30-5.70); RED CELL DISTRIBUTION WIDTH 13.5 % (11.5-14.5)
[2021-04-05 14:27] LABS: PLT ESTIMATE DECREASED (ADEQUATE)
--- NOTE | 2021-04-05 17:16 | NUR ---
Discharge Note: CORRINA LEGGETT [address] [place] [address] Discharge instructions and discharge home medications reviewed with Patient and a copy given. All questions have been answered and understanding verbalized. The following instructions and handouts were given: Diet, activity, medication list and follow up instructions provided to patient. Discontinued lines and drains: Peripheral IV discontinued and catheter intact. Patient discharged to Home or Self Care with Friend via Wheelchair
[2021-04-05] MEDS ORDERED: LACTOBACILLUS RHAMNOSUS GG 1 CAPSULE. PO SCH (21:00)
--- NOTE | 2021-04-06 17:31 | PATHOLOGY ---
[facility] Accession Number: [id number] . 01 Material submitted: . appendix - APPENDIX . 01 Clinical history: . APPENDICITIS LAPAROSCOPIC APPENDECTOMY . 02 Diagnosis: Appendix, laparoscopic appendectomy: - Acute appendicitis. ([facility]; 04/06/2021) [facility] 04/06/2021 1347 Local . 02 Comment: There is no evidence of perforation. ([facility]; 04/06/2021) . . 02 Electronically signed: . Judson Bernal MD, Pathologist NPI- [id number] . 01 Gross description: . Fixative: Formalin Labeled: Appendix Appendix length: 6.5 cm Appendix diameter: Ranges from 0.5-0.8 cm Mesoappendix: 2.0 cm Proximal margin: Stapled Serosa: Malin with red-brown lesions and fletcher-white exudate Cut surface: Sectioning reveals a moderate amount of hemorrhagic fecal material within the lumen. Luminal diameter: Ranges from 0.1-0.4 cm Perforation: Not identified Lesions/abnormalities: None identified A1 Proximal margin (inked black) and distal tip, bisected A2 Mid appendix (MRF; 04/05/2021) MFE/MFE 04/05/2021 1924 Local . 02 Pathologist provided ICD-10: K35.80 . 02 CPT . 505112 Specimen Comment: A courtesy copy of this report has been sent to [phone], [phone] Specimen Comment: [id number] Specimen Comment: Report sent to / DR SMITH Performed at: [address], [place], [place] [id number] MD Randal Lock MD Phone: [phone] Performed at: 02 [facility] [address] [place], [place] [id number] MD Judson Bernal MD Phone: [phone]
== END 2021-04-05 15:30 | disposition home or self-care (01) | DRG 342 ==
LOC: 4 NORTH 04:46
PROVIDERS: ADMIT Internal Medicine; ATTEND Internal Medicine
PROC: 0DTJ4ZZ Resection of Appendix, Percutaneous Endoscopic Approach (ICD-10-PCS; principal; 2021-04-04 11:00)
DX: K35.80 Unspecified acute appendicitis (principal); Z68.41 Body mass index [BMI] 40.0-44.9, adult; E66.01 Morbid (severe) obesity due to excess calories; F12.90 Cannabis use, unspecified, uncomplicated; F17.210 Nicotine dependence, cigarettes, uncomplicated; I10 Essential (primary) hypertension; K59.00 Constipation, unspecified; K76.0 Fatty (change of) liver, not elsewhere classified; Z86.16 Personal history of COVID-19
CPT/HCPCS: 36415; 80053; 85025; A4223; A4314; A4930; J0780; J1100; J2270; J2405; J2543; J2704; J2710; J3010; J3490; J7030; J7120; G0378